=== PATIENT | male | born 1955 | race Caucasian/White ===

== ENCOUNTER 2020-01-31 10:15 | Emergency (ER) | payer OTHER ==
[~2020-01-31] VITALS: Ht 182.9 cm; Wt 59.0 kg
--- NOTE | 2020-01-31 10:25 | NUR ---
ED Nurse Note:pt. was BIBA from [facility] with s/p fainting in bed this morning, pt. is A/Ox3 ambulatory with steady gait, he said that she is refusing any kind of treatment and want to go back to his facility, was notified
[2020-01-31] MEDS ORDERED: CRANBERRY450 M4 PO (10:27)
[2020-01-31] MEDS ORDERED: COLACE100 MG ORAL (10:27)
[2020-01-31] MEDS ORDERED: CALCIUM + D SO1 EACH PO (10:27)
[2020-01-31] MEDS ORDERED: BISACODYL5 MG ORAL (10:27)
[2020-01-31] MEDS ORDERED: DEPAKOTE ER500 MG ORAL (10:27)
[2020-01-31] MEDS ORDERED: BENZTROPINE MESY1 MG ORAL (10:27)
[2020-01-31 10:35] VITALS: BP 107/57
--- NOTE | 2020-01-31 10:35 | NUR ---
AMA:pt. signed AMA form, was spoked to by LUCILLE VARGHESE, then went to the transportation gurney to be taken back to his facility, condition stable SEE AMA FORM.
[2020-01-31] MEDS ORDERED: FERROUS SULFAT325 MG ORAL (10:40)
[2020-01-31] MEDS ORDERED: GABAPENTIN100 MG ORAL (10:40)
[2020-01-31] MEDS ORDERED: LISINOPRIL5 MG ORAL (10:40)
[2020-01-31] MEDS ORDERED: FOLIC ACID1 MG ORAL (10:40)
[2020-01-31] MEDS ORDERED: MIRTAZAPINE15 MG ORAL (10:40)
[2020-01-31] MEDS ORDERED: VITAMIN B-1100 MG ORAL (10:40)
[2020-01-31] MEDS ORDERED: RISPERDAL2 MG ORAL (10:40)
[2020-01-31] MEDS ORDERED: TRAMADOL HCL50 MG ORAL (10:40)
[2020-01-31] MEDS ORDERED: FLEET ENEMA133 ML RECTAL (10:40)
[2020-01-31] MEDS ORDERED: SENNA8.6 M2 PO (10:40)
[2020-01-31] MEDS ORDERED: OMEPRAZOLE20 M2 ORAL (10:40)
--- NOTE | 2020-02-01 18:48 | Emergency Room Report ---
History of Present Illness General Chief Complaint: Seizure Source: Medical Record Present Illness HPI Patient is a 64-year-old male brought in by EMS for witnessed seizure at his facility. Prior history of seizure disorder. He was noted to be postictal initially. Denies any current complaints. Allergies: Coded Allergies: No Known Allergies (Unverified , 01/31/20) COVID-19 Screening Contact w/high risk pt: No Experienced COVID-19 symptoms?: No COVID-19 Testing performed SENIOR BEHAVIORAL SCIENTIST: No Patient History Past Medical History: see triage record, seizures Reviewed Nursing Documentation: PMH: Agreed; PSxH: Agreed Nursing Documentation-PMH Hx Hypertension: Yes History Of Psychiatric Problem: Yes - schizo,bipolar Review of Systems All Other Systems: limited - Limited by poor cooperation Physical Exam Vital Signs Date Time Temp Pulse Resp B/P (MAP) Pulse Ox O2 Delivery O2 Flow Rate FiO2 01/31/20 10:21 97.5 68 16 107/57 (74) 97 Room Air General Appearance: well appearing, no apparent distress, alert, GCS 15 Head: normocephalic, atraumatic ENT: hearing grossly normal, normal voice Neck: full range of motion, supple Respiratory: no respiratory distress, speaking full sentences Gastrointestinal: normal inspection, soft Musculoskeletal: no calf tenderness Neurologic: alert, motor strength/tone normal, psychiatric aide instructor III-XII nml as tested, oriented x3, normal gait Psychiatric: mood/affect normal Skin: no rash Medical Decision Making Diagnostic Impression: Primary Impression: seizures ER Course Patient refused to be seen in the hospital. He is awake alert and oriented. He states he did not want to be taken to the hospital. The patient was advised risk benefits alternatives of leaving AGAINST MEDICAL ADVICE and he indicated understanding and all questions are answered patient still continued want to leave and signed AGAINST MEDICAL ADVICE. Despite risks including but not limited to disability and worsening of current lifestyle. Primary doctor was also notified that the patient was leaving AGAINST MEDICAL ADVICE. He appears capable of making decisions at this time. Last Vital Signs Date Time Temp Pulse Resp B/P (MAP) Pulse Ox O2 Delivery O2 Flow Rate FiO2 01/31/20 10:35 97.5 62 16 107/57 97 Room Air Status: unchanged Disposition: AGAINST MEDICAL ADVICE Condition: Unknown Referrals: Rodney Amaya MD (PCP) Michel Perdomo MD Feb 01, 2020 18:48
== END 2020-01-31 11:00 | disposition left against medical advice (07) ==
LOC: EDBD 10:15 → EMR 10:45
DX: G40.909 Epilepsy, unspecified, not intractable, without status epilepticus (principal); I10 Essential (primary) hypertension; F20.9 Schizophrenia, unspecified; F31.9 Bipolar disorder, unspecified
CPT/HCPCS: 99281